=== PATIENT | female | born 1935 | race Caucasian/White ===

== ENCOUNTER → 2020-05-10 | Outpatient (CLI) | payer MEDICARE, OTHER ==
[~2020-05-10] MED LIST: ALLEGRA ALLERG180 MG PO; AMBIEN10 MG PO; ASPIR 8181 MG PO; CHILDREN'S MUL1 EAC2 PO; COREG6.25 MG PO; K-TAB ER10 MEQ PO; LASIX TAB 20 MG20 MG PO; LIPITOR TAB 1010 MG PO; PLAVIX75 MG PO; PRINIVIL20 MG PO; PROTONIX 40 MG40 M1 PO; TRAVATAN Z5 ML OU; TURMERIC PO
== END ==
LOC: RAD 10:46
DX: M16.11 Unilateral primary osteoarthritis, right hip (principal)
CPT/HCPCS: 73502

== ENCOUNTER → 2020-05-12 | Outpatient (CLI) | payer MEDICARE, OTHER | LOC: KOH-I 10:10 | DX: M16.11 Unilateral primary osteoarthritis, right hip (principal); R29.6 Repeated falls; M48.07 Spinal stenosis, lumbosacral region; M43.13 Spondylolisthesis, cervicothoracic region | CPT/HCPCS: 72100 ==